=== PATIENT | female | born 1950 | race Caucasian/White ===

== ENCOUNTER 2016-08-12 13:18 | Emergency (ER) | payer MEDICARE, OTHER ==
[2016-08-12] MEDS ORDERED: LORazepam 1 MG TAB PO STA (14:55)
[2016-08-12] MEDS ORDERED: MECLIZINE 12.5 MG TAB PO STA (14:56)
--- NOTE | 2016-08-12 14:57 | ED ---
General Adult HPI - General Chief complaint: Dizziness Stated complaint: lightheaded/weakness/heart concerns Time Seen by Provider: 08/12/16 14:37 Source: patient, family, RN notes reviewed Mode of arrival: wheelchair Limitations: no limitations - History of Present Illness Initial comments: Chief complaint and history of present illness a 65-year-old female who feels dizzy with head movement. She's had congestion for long period of time. She also suffered the loss of the friend yesterday. States she has some numbness and tingling bilaterally and when she turns her head [id number] she gets dizzy. No nausea no vomiting and otherwise no other neuro deficits. - Related Data Home Medications Medication Instructions Recorded Confirmed Albuterol Inhaler [Ventolin Hfa 1 puff INHALATION RT-Q6H PRN 08/12/16 08/12/16 Inhaler] Cod Liver Oil 1 cap PO DAILY 08/12/16 08/12/16 Cyanocobalamin [Vitamin B-12] 500 mcg PO DAILY 08/12/16 08/12/16 Doxazosin [Cardura] 8 mg PO DAILY 08/12/16 08/12/16 Enalapril [Vasotec] 10 mg PO DAILY 08/12/16 08/12/16 Furosemide [Lasix] 20 mg PO DAILY PRN 08/12/16 08/12/16 Glucosamine HCl/Chondr [place] A Na 1 tab PO DAILY 08/12/16 08/12/16 [Osteo Bi-Flex Caplet] Multivitamins, Thera [Multivitamin] 1 tab PO DAILY 08/12/16 08/12/16 NIFEdipine [Procardia XL] 90 mg PO DAILY 08/12/16 08/12/16 [place]-3 Fatty Acids/Fish Oil [Fish 1 cap PO DAILY 08/12/16 08/12/16 Oil 1,000 mg Softgel] Omeprazole 20 mg PO DAILY 08/12/16 08/12/16 Potassium Chloride [Klor-Con 10] 10 meq PO DAILY PRN 08/12/16 08/12/16 Rosuvastatin [Crestor] 20 mg PO MOWEFR 08/12/16 08/12/16 traMADol HCL [Ultram] 50 mg PO W/SUPPER 08/12/16 08/12/16 traMADol HCL [Ultram] 100 mg PO HS 08/12/16 08/12/16 traMADol HCl [Ultram] 50 mg PO W/BRKFST 08/12/16 08/12/16 Previous Rx's Medication Instructions Recorded Meclizine [Antivert] 25 mg PO TID #30 tab 08/12/16 Allergies Allergy/AdvReac Type Severity Reaction Status Date / Time No Known Allergies Allergy Verified 08/12/16 15:11 Review of Systems ROS Statement: Those systems with pertinent positive or pertinent negative responses have been documented in the HPI. Review of systems. No headache or visual acuity changes of them when she moves her head quickly she feels little dizzy no nausea no vomiting no chest pain no shortness of breath. No neuro deficits that were pre-existing. 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 Patient denying nausea vomiting and diarrhea. Past medical problems significant for fibromyalgia, GERD, hyperlipidemia, hypertension and RSD. Surgeries appendectomy, back surgery, , total right knee, tonsillectomy. The patient's family history significant for one sister with lymphoma another sister with lung cancer. Father had lung cancer as wellhistory of kidney cancer. The patient mother of a stroke. Grandmother of a stroke. Patient denies ALLERGIES nonsmoker nondrinker. ROS Other: All systems not noted in ROS Statement are negative. Past Medical History Past Medical History: Fibromyalgia, GERD/Reflux, Hyperlipidemia, Hypertension Additional Past Medical History / Comment(s): RSD History of Any Multi-Drug Resistant Organisms: None Reported Past Surgical History: Appendectomy, Back Surgery, Section, Joint Replacement, Orthopedic Surgery, Tonsillectomy Additional Past Surgical History / Comment(s): right knee replacement Past Psychological History: No Psychological Hx Reported Smoking Status: Never smoker Past Alcohol Use History: None Reported Past Drug Use History: None Reported General Exam - General Exam Comments Initial Comments: General: The patient is awake and alert, complains of some dizziness with rapid head movement. No nausea no vomiting no significant visual acuity changes. Vital signs show torus 98.2 pulse 96 respiratory 20 pulse ox 97% room air blood pressure 120/64 mildly elevated systolic noted. The patient will be advised to call . family physician tomorrow because of clinical finding today of murmur and right carotid bruit. Eye: Pupils are equal, round and reactive to light, extra-ocular movements are intact ; there is normal conjunctiva bilaterally. No signs of icterus. Ears, nose, mouth and throat: There are moist mucous membranes and no oral lesions. Neck: The neck is supple, there is no tenderness , positive or carotid bruit right side. Cardiovascular: There is a regular rate and rhythm. Systolic murmur. Patient states she's never been told she has a murmur before. Respiratory: Lungs are clear to auscultation, respirations are non-labored, breath sounds are equal. No wheezes, stridor, rales, or rhonchi. Gastrointestinal: Soft, non-distended, non-tender abdomen without masses or organomegaly noted. There is no rebound or guarding present. No CVA tenderness. Bowel sounds are unremarkable. Back: Not complaining of any back pain currently. Musculoskeletal: Full range of motion upper and lower extremities. 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 Neurological: CN II-XII intact, There are no obvious motor or sensory deficits. Coordination appears grossly intact. Speech is normal. No focal or lateralizing findings. Skin: Skin is warm and dry and no rashes or lesions are noted. Psychiatric: Cooperative, appropriate mood & affect, normal judgment. Admittedly mildly anxious because the of a friend yesterday. Limitations: no limitations Course Vital Signs 08/12/16 13:27 Temperature 98.2 F Pulse Rate 96 Respiratory 20 Rate Blood Pressure 128/64 O2 Sat by Pulse 97 Oximetry Medical Decision Making - Medical Decision Making Patient's feeling significantly better after by mouth Ativan and meclizine. Patient was placed on meclizine 25 mg 3 times a day for dizziness. Advised to stay well-hydrated. And follow-up with family physician as needed. Again reminded to follow up for an echocardiogram and carotid Doppler. - Lab Data Lab Results 08/12/16 Range/Units 14:54 Urine Color Light Yellow Urine Appearance Clear (Clear) Urine pH 5.0 (5.0-8.0) Ur Specific [place] 1.005 (1.001-1.035) Urine Protein Negative (Negative) Urine Glucose (UA) Negative (Negative) Urine Ketones Negative (Negative) Urine Blood Negative (Negative) Urine Nitrate Positive H (Negative) Urine Bilirubin Negative (Negative) Urine Urobilinogen <2.0 (<2.0) mg/dL Ur Leukocyte Esterase Small H (Negative) Urine RBC 1 (0-5) /hpf Urine WBC 7 H (0-5) /hpf Ur Squamous Epith Cells 2 (0-4) /hpf Urine Bacteria Many H (None) /hpf Urine Mucus Rare H (None) /hpf Disposition Clinical Impression: Benign paroxysmal positional vertigo Disposition: HOME SELF-CARE Condition: Good Instructions: Dizziness (ED), Benign Paroxysmal Positional Vertigo (ED) Additional Instructions: Follow-up with your family physician for evaluation of the heart murmur and carotid bruit. You need echocardiogram of the heart and Doppler study of the carotids. Change positions slowly. Take meclizine as directed. Prescriptions: Meclizine [Antivert] 25 mg PO TID #30 tab Time of Disposition: 16:05
[2016-08-12] MEDS ORDERED: DAPTOMYCIN IV SCH (15:00)
[2016-08-12] MEDS ORDERED: SODIUM CHLORIDE 0.9% IV SCH (15:00)
[2016-08-12 15:12] LABS: Appearance,Urine Clear (Clear); Bacteria,Urine Many /hpf; Bilirubin,Urine Negative (Negative); Glucose,Urine (UA) Negative (Negative); Ketones,Urine Negative (Negative); Leukocyte Esterase,Urine Small (Negative); Mucus,Urine Rare /hpf; Nitrite,Urine Positive (Negative); Particle Count 19756; Protein,Urine Negative (Negative); RBC,Urine 1 /hpf (0-5); Specific Gravity,Urine 1.005 (1.001-1.035); Squamous Epithelial Cell,Urine 2 /hpf (0-4); UA Billing (MACRO vs. MICRO) MICRO; Urobilinogen,Urine <2.0 mg/dL (<2.0); WBC,Urine 7 /hpf (0-5)
[2016-08-12 16:17] VITALS: BP 152/83; PULSE 94; RESP 18; TEMP 98.5
== END 2016-08-12 16:20 | disposition home or self-care (01) ==
LOC: EC 13:18
DX: H81.10 Benign paroxysmal vertigo, unspecified ear (principal); R01.1 Cardiac murmur, unspecified; R09.89 Other specified symptoms and signs involving the circulatory and respiratory systems; M79.7 Fibromyalgia; K21.9 Gastro-esophageal reflux disease without esophagitis; E78.5 Hyperlipidemia, unspecified; I10 Essential (primary) hypertension; Z79.899 Other long term (current) drug therapy; Z79.891 Long term (current) use of opiate analgesic
CPT/HCPCS: 81001; 87077; 87086; 87186; 99283

== ENCOUNTER 2017-06-09 19:48 | Emergency (ER) | payer MEDICARE, OTHER ==
--- NOTE | 2017-06-09 20:30 | ED ---
General Adult HPI - General Chief complaint: Back Pain/Injury Stated complaint: Back Pain Time Seen by Provider: 06/09/17 20:08 Source: patient, family, RN notes reviewed Mode of arrival: wheelchair Limitations: no limitations - History of Present Illness Initial comments: Chief complaint history of present illness this is a 66-year-old female here with her . The patient reports several days ago at home she is walking down the house and she missed the last 2 steps. She fell towards her left side landing on skull fracture. Patient then rolled over to her right side on the ground. She went to an urgent care sooner thereafter. X-rays were taken but she did not get the results. The patient reports she is currently taking baclofen diclofenac and tramadol but still has discomfort. There is no loss of consciousness. No change in appetite. No dark urine or blood in the urine. - Related Data Home Medications Medication Instructions Recorded Confirmed Doxazosin [Cardura] 8 mg PO DAILY 08/12/16 06/09/17 Enalapril [Vasotec] 10 mg PO DAILY 08/12/16 06/09/17 NIFEdipine [Procardia XL] 90 mg PO DAILY 08/12/16 06/09/17 Omeprazole 20 mg PO DAILY 08/12/16 06/09/17 Rosuvastatin [Crestor] 20 mg PO MOWEFR 08/12/16 06/09/17 traMADol HCL [Ultram] 50 mg PO W/SUPPER 08/12/16 06/09/17 traMADol HCL [Ultram] 100 mg PO HS 08/12/16 06/09/17 traMADol HCl [Ultram] 50 mg PO W/BRKFST 08/12/16 06/09/17 Baclofen [Lioresal] 10 mg PO TID PRN 06/09/17 06/09/17 Diclofenac Sodium [Voltaren] 75 mg PO BID PRN 06/09/17 06/09/17 Allergies Allergy/AdvReac Type Severity Reaction Status Date / Time nitrofurantoin Allergy Verified 06/09/17 21:00 [From Macrobid] Review of Systems ROS Statement: Those systems with pertinent positive or pertinent negative responses have been documented in the HPI. review of systems. Denies headache was no loss of consciousness no visual acuity changes she reports deep breathing increases discomfort to her back or flank area. Has pain when leaning back onto that area. No nausea no vomiting no neuro deficits. All systems are reviewed. Past medical problems significant for fibromyalgia and RSD. She history of GERD, hyperlipidemia and hypertension.Surgeries include appendectomy, laminectomy lower back, , total right knee replacement, tonsillectomy. Family history includes cancers, kidney, leukemia, lung. ALLERGIES none nonsmoker nondrinker. ROS Other: All systems not noted in ROS Statement are negative. Past Medical History Past Medical History: Fibromyalgia, GERD/Reflux, Hyperlipidemia, Hypertension Additional Past Medical History / Comment(s): RSD History of Any Multi-Drug Resistant Organisms: None Reported Past Surgical History: Appendectomy, Back Surgery, Section, Joint Replacement, Orthopedic Surgery, Tonsillectomy Additional Past Surgical History / Comment(s): right knee replacement Past Psychological History: No Psychological Hx Reported Smoking Status: Never smoker Past Alcohol Use History: None Reported Past Drug Use History: None Reported General Exam - General Exam Comments Initial Comments: General: The patient is awake and alert,complains of pain to her left flank area. She fell several days ago. Has a bruise to the left midaxillary line. But the pain appears to be a possible broken rib in her left flank. Eye: Pupils are equal, round and reactive to light, extra-ocular movements are intact ; there is normal conjunctiva bilaterally. No signs of icterus. Ears, nose, mouth and throat: There are moist mucous membranes and no oral lesions. Neck: The neck is supple, there is no tenderness . Cardiovascular: no anterior chest wall pain no complaint of any palpitations. Respiratory: pain with deep breathing twisting or turning to her left flank. Cannot lean against anything and that part of her chest wall. Lungs are clear no rubs rales or wheezing. Palpation of the area increases pain as well. Gastrointestinal: Soft, non-distended, non-tender abdomen without masses or organomegaly noted. There is no rebound or guarding present. No CVA tenderness. Bowel sounds are unremarkable. Back: left flank area pain no bruises noted. Musculoskeletal: Normal ROM, no tenderness, There is no pedal edema. There is no calf tenderness or swelling. Neurological: no neuro deficits. Patient did not have any head or neck injury when she fell several days ago at home. Skin: bruise to her left axillary line. Limitations: no limitations Course Vital Signs 06/09/17 19:51 Temperature 98.3 F Pulse Rate 81 Respiratory 18 Rate Blood Pressure 138/81 O2 Sat by Pulse 95 Oximetry Medical Decision Making - Medical Decision Making Medical decision-making. The patient's here because of pain to her left flank area I suspect a fractured rib or nondisplaced rib fracture. X-rays of the chest and rib series were done and reviewed radiologist his findings are heart and mediastinum are normal. Lungs clear. There is no sign of pleural effusion or pneumothorax. The ribs appear intact. Impression normal chest normal bilateral ribs. As read by Dr. Wolf Lungs clear to auscultation. The patient has pain with even mild palpation of the area in question in her left flank area. No change in urination. Deep palpation of the abdomen was negative no masses. Spleen is not enlarged or tender by palpation. We discussed rib contusion nondisplaced rib fractures. The patient does have medications including tramadol. 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 The patient will be given a pain shot this evening and referred back to her family physician. Advised to look for any changes in stool or urine. Disposition Clinical Impression: Contusion of rib on left side Disposition: HOME SELF-CARE Condition: Stable Instructions: Rib Contusion (ED), Rib Fracture (ED) Additional Instructions: Find position of comfort. Continue with home pain medications. Follow-up with family physician. Referrals: Artie Brannon DO [Primary Care Provider] - 1-2 days Time of Disposition: 21:26
--- NOTE | 2017-06-09 21:16 | XR ---
EXAMINATION TYPE: XR ribs bilat w pa chest xray DATE OF EXAM: 06/09/2017 COMPARISON: NONE HISTORY: Rib pain TECHNIQUE: 9 views FINDINGS: Heart and mediastinum are normal. Lungs are clear. There is no sign of pleural effusion or pneumothorax. The ribs appear intact. IMPRESSION: Normal chest. Normal bilateral ribs.
[2017-06-09] MEDS ORDERED: HYDROmorphone 1 MG/ML 1 ML SYRINGE IM STA (21:25)
[2017-06-09] MEDS ORDERED: HYDROmorphone 0.5 MG/0.5 ML SYRINGE IM STA (21:36)
[2017-06-09 21:37] VITALS: BP 137/72; PULSE 78; RESP 16; TEMP 97.8
== END 2017-06-09 21:44 | disposition home or self-care (01) ==
LOC: EC 19:48
DX: S20.212A Contusion of left front wall of thorax, initial encounter (principal); M79.7 Fibromyalgia; K21.9 Gastro-esophageal reflux disease without esophagitis; E78.5 Hyperlipidemia, unspecified; I10 Essential (primary) hypertension; Z79.899 Other long term (current) drug therapy; Z88.1 Allergy status to other antibiotic agents; W10.9XXA Fall (on) (from) unspecified stairs and steps, initial encounter
CPT/HCPCS: 71111; 99283; 96372; J1170

== ENCOUNTER 2017-10-20 04:02 | Emergency (ER) | payer MEDICARE, OTHER ==
[2017-10-20 04:08] VITALS: RESP 18
[2017-10-20 04:33] LABS: Appearance,Urine Clear (Clear); Bacteria,Urine Rare /hpf; Bilirubin,Urine Negative (Negative); Blood,Urine Trace (Negative); Color,Urine Light Yellow; Glucose,Urine (UA) Negative (Negative); Ketones,Urine Negative (Negative); Leukocyte Esterase,Urine Small (Negative); Mucus,Urine Rare /hpf; Nitrite,Urine Negative (Negative); Protein,Urine Negative (Negative); RBC,Urine 2 /hpf (0-5); Squamous Epithelial Cell,Urine 1 /hpf (0-4); Urobilinogen,Urine <2.0 mg/dL (<2.0); WBC,Urine 9 /hpf (0-5)
--- NOTE | 2017-10-20 05:00 | ED ---
Back Pain HPI - General Chief Complaint: Back Pain/Injury Stated Complaint: Lower back pain Time Seen by Provider: 10/20/17 04:13 Source: patient Limitations: physical limitation - History of Present Illness Initial Comments: This patient is a 67-year-old woman who presents to be evaluated for pain across her low back, which is going on tonight and was accompanied by she states that tingling feeling to both legs. She states that it came on in the evening, and the sensation in her legs was giving her difficulty in going to sleep. Patient states that she was recently treated for urinary tract infection , taking a course of cephalexin, of which she has 1 pill left. She states that she does not feel that symptoms have completely resolved. Patient denies weakness or numbness of the legs. She is not having any saddle anesthesia. She has not had change in bowel function. No urinary retention or incontinence. No abdominal pain. MD Complaint: back pain Onset/Timin -: days(s) Place: home Severity: mild Quality: dull Consistency: constant Improves With: none Worsens With: none - Related Data Home Medications Medication Instructions Recorded Confirmed Doxazosin [Cardura] 8 mg PO DAILY 08/12/16 06/09/17 Enalapril [Vasotec] 10 mg PO DAILY 08/12/16 06/09/17 NIFEdipine [Procardia XL] 90 mg PO DAILY 08/12/16 06/09/17 Omeprazole 20 mg PO DAILY 08/12/16 06/09/17 Rosuvastatin [Crestor] 20 mg PO MOWEFR 08/12/16 06/09/17 traMADol HCL [Ultram] 50 mg PO W/SUPPER 08/12/16 06/09/17 traMADol HCL [Ultram] 100 mg PO HS 08/12/16 06/09/17 traMADol HCl [Ultram] 50 mg PO W/BRKFST 08/12/16 06/09/17 Baclofen [Lioresal] 10 mg PO TID PRN 06/09/17 06/09/17 Diclofenac Sodium [Voltaren] 75 mg PO BID PRN 06/09/17 06/09/17 Previous Rx's Medication Instructions Recorded Diazepam [Valium] 5 mg PO TID #15 tab 10/20/17 Sulfamethox-Tmp 800-160Mg [Bactrim 1 each PO Q12HR #6 tab 10/20/17 Ds] predniSONE 20 mg PO BID #8 tab 10/20/17 Allergies Allergy/AdvReac Type Severity Reaction Status Date / Time nitrofurantoin Allergy Rash/Hives Verified 10/20/17 04:08 [From Macrobid] Review of Systems ROS Statement: Those systems with pertinent positive or pertinent negative responses have been documented in the HPI. ROS Other: All systems not noted in ROS Statement are negative. Constitutional: Denies: fever, chills Respiratory: Denies: cough, dyspnea Cardiovascular: Denies: chest pain, palpitations, edema Gastrointestinal: Denies: abdominal pain, nausea, vomiting, diarrhea Genitourinary: Reports: dysuria. Denies: frequency, hematuria Musculoskeletal: Reports: as per HPI, back pain Skin: Denies: rash Neurological: Reports: paresthesias. Denies: headache, weakness, numbness, abnormal gait Past Medical History Past Medical History: Fibromyalgia, GERD/Reflux, Hyperlipidemia, Hypertension Additional Past Medical History / Comment(s): RSD, History of Any Multi-Drug Resistant Organisms: None Reported Past Surgical History: Appendectomy, Back Surgery, Section, Joint Replacement, Orthopedic Surgery, Tonsillectomy Additional Past Surgical History / Comment(s): right knee replacement, Past Psychological History: No Psychological Hx Reported Smoking Status: Never smoker Past Alcohol Use History: None Reported Past Drug Use History: None Reported General Exam Limitations: physical limitation General appearance: alert, in no apparent distress, obese Head exam: Present: atraumatic, normocephalic Respiratory exam: Present: normal lung sounds bilaterally. Absent: respiratory distress, wheezes, rales, rhonchi, stridor Cardiovascular Exam: Present: regular rate, normal rhythm, normal heart sounds. Absent: systolic murmur, diastolic murmur, rubs, gallop GI/Abdominal exam: Present: soft. Absent: distended, tenderness, guarding, rebound, rigid, mass, pulsatile mass, hernia Extremities exam: Present: normal inspection, full ROM, normal capillary refill. Absent: tenderness, pedal edema, joint swelling, calf tenderness Back exam: Absent: CVA tenderness (R), CVA tenderness (L), paraspinal tenderness , vertebral tenderness Neurological exam: Present: alert, reflexes normal. Absent: motor sensory deficit Skin exam: Present: warm, dry, intact, normal color. Absent: rash Course Vital Signs 04/08/18 04:04 Temperature 97.4 F L Pulse Rate 83 Respiratory 18 Rate Blood Pressure 148/80 O2 Sat by Pulse 97 Oximetry Medical Decision Making - Lab Data Lab Results 10/20/17 Range/Units 04:10 Urine Color Light Yellow Urine Appearance Clear (Clear) Urine pH 6.0 (5.0-8.0) Ur Specific [place] 1.010 (1.001-1.035) Urine Protein Negative (Negative) Urine Glucose (UA) Negative (Negative) Urine Ketones Negative (Negative) Urine Blood Trace H (Negative) Urine Nitrite Negative (Negative) Urine Bilirubin Negative (Negative) Urine Urobilinogen <2.0 (<2.0) mg/dL Ur Leukocyte Esterase Small H (Negative) Urine RBC 2 (0-5) /hpf Urine WBC 9 H (0-5) /hpf Urine WBC Clumps Rare H (None) /hpf Ur Squamous Epith Cells 1 (0-4) /hpf Urine Bacteria Rare H (None) /hpf Urine Mucus Rare H (None) /hpf Disposition Clinical Impression: Lumbar radiculopathy, Urinary tract infection Disposition: HOME SELF-CARE Condition: Good Instructions: Acute Low Back Pain (ED) Prescriptions: Diazepam [Valium] 5 mg PO TID #15 tab predniSONE 20 mg PO BID #8 tab Sulfamethox-Tmp 800-160Mg [Bactrim Ds] 1 each PO Q12HR #6 tab Referrals: Artie Brannon DO [Primary Care Provider] - 1-2 days Radha Maguire DO [Doctor of Osteopathic Medicine] - 1-2 days
[2017-10-20] MEDS ORDERED: predniSONE 20 MG TAB PO STA (05:38)
[2017-10-20] MEDS ORDERED: DIAZEPAM 5 MG TAB PO STA (05:43)
[2017-10-20] MEDS ORDERED: SULFAMETHOX-TMP 800-160MG 1 EACH TAB PO STA (05:43)
[2017-10-20 06:01] VITALS: BP 143/70; PULSE 80; TEMP 97.2
== END 2017-10-20 06:00 | disposition home or self-care (01) ==
LOC: EC 04:02
DX: M54.16 Radiculopathy, lumbar region (principal); N39.0 Urinary tract infection, site not specified; K21.9 Gastro-esophageal reflux disease without esophagitis; E78.5 Hyperlipidemia, unspecified; M79.7 Fibromyalgia; I10 Essential (primary) hypertension; Z88.8 Allergy status to other drugs, medicaments and biological substances; Z79.891 Long term (current) use of opiate analgesic; Z79.899 Other long term (current) drug therapy; Z98.890 Other specified postprocedural states
CPT/HCPCS: 99283; 81001; J7512

== ENCOUNTER 2018-10-03 15:50 | Emergency (ER) | payer MEDICARE, OTHER ==
[2018-10-03] MEDS ORDERED: SODIUM CHLORIDE 0.9% 1,000 ML IV STA (16:07)
[2018-10-03] MEDS ORDERED: ASPIRIN 81 MG PO STA (16:07)
[2018-10-03] MEDS ORDERED: IPRATROPIUM-ALBUTEROL 3 ML NEB INHALATION STA ×2 (16:10→17:21)
--- NOTE | 2018-10-03 16:15 | ED ---
Chest Pain HPI - General Chief Complaint: Chest Pain Stated Complaint: chest pressure Time Seen by Provider: 10/03/18 15:58 Source: patient, RN notes reviewed Mode of arrival: wheelchair Limitations: no limitations - History of Present Illness Initial Comments: This is a 68-year-old female who states she has a "touch of asthma" who states she's had intermittent episodes of anterior chest pain that sometimes radiates toward her back states is pressure-like in nature gets worse with supine positioning. She relates it to a cough that she's had with yellow phlegm she's had no fevers chills or sweats across a lot for over a week. States the pain is 4-5/10 when it occurs. No known history of heart disease. No other symptomatology or modifying factors at this time. MD Complaint: chest pain, other - Related Data Home Medications Medication Instructions Recorded Confirmed Doxazosin [Cardura] 8 mg PO DAILY 08/12/16 10/03/18 Enalapril [Vasotec] 10 mg PO DAILY 08/12/16 10/03/18 NIFEdipine [Procardia XL] 90 mg PO DAILY 08/12/16 10/03/18 RX: Omeprazole 20 mg PO DAILY 08/12/16 10/03/18 Rosuvastatin [Crestor] 20 mg PO MOWEFR 08/12/16 10/03/18 traMADol HCl [Ultram] 50 mg PO TID 08/12/16 10/03/18 Albuterol Inhaler [Ventolin Hfa 1 - 2 puff INHALATION RT-Q6H PRN 10/03/18 Inhaler] Aspirin EC [Ecotrin Low Dose] 81 mg PO DAILY 10/03/18 10/03/18 Cyanocobalamin (Vitamin B-12) 1,000 mcg PO DAILY 10/03/18 10/03/18 [Vitamin B-12] Ferrous Sulfate [Feosol] 325 mg PO BID 10/03/18 10/03/18 Fluticasone Nasal [place] [Flonase 1 spray EA NOSTRIL DAILY 10/03/18 10/03/18 Nasal [place]] Fluticasone Propionate [Flovent 2 puff INHALATION RT-DAILY 10/03/18 10/03/18 Hfa 220 mcg] Levofloxacin [Levaquin] 500 mg PO DAILY 10/03/18 10/03/18 Multivitamin,Therapeutic [Thera] 1 tab PO DAILY 10/03/18 10/03/18 [place]-3 Fatty Acids/Fish Oil [Fish 1 cap PO DAILY 10/03/18 10/03/18 Oil 1,000 mg Softgel] RX: Torsemide 10 mg PO DAILY 10/03/18 10/03/18 methylPREDNISolone [Medrol] 4 mg PO TID 10/03/18 10/03/18 Previous Rx's Medication Instructions Recorded RX: Magnesium 200 mg PO DAILY #7 tablet 10/03/18 Allergies Allergy/AdvReac Type Severity Reaction Status Date / Time nitrofurantoin Allergy Rash/Hives Verified 10/03/18 16:23 [From Macrobid] Review of Systems ROS Statement: Those systems with pertinent positive or pertinent negative responses have been documented in the HPI. ROS Other: All systems not noted in ROS Statement are negative. EKG Findings - EKG Results: EKG: interpreted by BETTIED, sinus rhythm (Normal sinus rhythm of 82. Interval 138 QRS duration 86 QT since QTC 390/455 nonspecific T-wave configuration) Past Medical History Past Medical History: Fibromyalgia, GERD/Reflux, Hyperlipidemia, Hypertension Additional Past Medical History / Comment(s): RSD, History of Any Multi-Drug Resistant Organisms: None Reported Past Surgical History: Appendectomy, Back Surgery, Section, Joint Replacement, Orthopedic Surgery, Tonsillectomy Additional Past Surgical History / Comment(s): right knee replacement, Past Psychological History: No Psychological Hx Reported Smoking Status: Never smoker Past Alcohol Use History: None Reported Past Drug Use History: None Reported General Exam - General Exam Comments Initial Comments: This is a well-developed well-nourished awake alert oriented 3 female Limitations: no limitations General appearance: alert, in no apparent distress Head exam: Present: atraumatic, normocephalic, normal inspection Eye exam: Present: normal appearance, PERRL, EOMI. Absent: scleral icterus, conjunctival injection, periorbital swelling ENT exam: Present: normal exam, mucous membranes moist Neck exam: Present: normal inspection, full ROM, other (No stridor JVD or bruits). Absent: tenderness, meningismus, lymphadenopathy Respiratory exam: Present: wheezes, rhonchi (Some scattered rhonchi), decreased breath sounds. Absent: respiratory distress, rales, stridor, chest wall tenderness Cardiovascular Exam: Present: regular rate, normal rhythm, normal heart sounds. Absent: systolic murmur, diastolic murmur, rubs, gallop, clicks GI/Abdominal exam: Present: soft, normal bowel sounds. Absent: distended, tenderness, guarding, rebound, rigid Extremities exam: Present: normal inspection, full ROM, normal capillary refill. Absent: tenderness, pedal edema, joint swelling, calf tenderness Back exam: Present: normal inspection Neurological exam: Present: alert, oriented X3, CN II-XII intact Psychiatric exam: Present: normal affect, normal mood Skin exam: Present: warm, dry, intact, normal color. Absent: rash Course Vital Signs 10/03/18 10/03/18 10/03/18 15:52 16:17 16:26 Temperature 97.8 F Pulse Rate 81 64 63 Respiratory 16 14 14 Rate Blood Pressure 129/75 O2 Sat by Pulse 93 L Oximetry 10/03/18 10/03/18 10/03/18 17:58 18:19 18:26 Temperature Pulse Rate 70 66 68 Respiratory 18 18 18 Rate Blood Pressure 116/72 O2 Sat by Pulse 98 Oximetry - Reevaluation(s) Reevaluation #1: 10/03/18 17:20 Reevaluation reveals the pressure of resolved however the patient still feeling short of breath and coughing reevaluation reveals decreased breath sounds with wheezes and rhonchi in both lung [place]. Repeat updraft will be ordered Reevaluation #2: 10/03/18 18:54 Evaluation patient reveals she is much improved markedly better aeration occasional wheezing clears with deep breathing. Chest Pain [facility] Patient's x-ray is unremarkable for acute processes. After 2 updraft treatments IV magnesium and IV steroids patient is much improved and would like to go home no further difficulty breathing or chest discomfort chest discomfort is likely secondary to musculoskeletal etiologies secondary to her persistent coughing and difficulty breathing. She will be discharged with continuation of her current medication as well as recommendations for increasing her oral fluids and oral magnesium supplementation. She is return if any problems or exacerbations of her original chief complaint otherwise she is a follow-up with her doctor. She are in agreement with this. Disposition Clinical Impression: Acute asthma exacerbation, Chest wall syndrome Disposition: HOME SELF-CARE Condition: Good Instructions (If sedation given, give patient instructions): Costochondritis (ED), Bronchospasm (ED), Asthma (ED), Reactive Airways Disease (ED) Additional Instructions: Continue with your current medications in addition to the magnesium that is being recommended Prescriptions: RX: Magnesium 200 mg PO DAILY #7 tablet Is patient prescribed a controlled substance at d/c from ED?: No Referrals: Artie Brannon DO [Primary Care Provider] - 1-2 days
[2018-10-03 16:38] LABS: Basophils % (A) 0 %; Eosinophils # (A) 0.1 k/uL (0-0.7); Eosinophils % (A) 1 %; HCT 38.5 % (34.0-46.0); Lymphocytes % (A) 23 %; MCH 26.9 pg (25.0-35.0); MCHC 31.3 g/dL (31.0-37.0); Mean Platelet Volume 6.7; Monocytes # (A) 0.6 k/uL (0-1.0); Monocytes % (A) 7 %; Neutrophils # (A) 5.7 k/uL (1.3-7.7); Neutrophils % (A) 67 %; Platelet Count 340 k/uL (150-450); RBC 4.48 m/uL (3.80-5.40); RDW 14.5 % (11.5-15.5); WBC 8.5 k/uL (3.8-10.6)
[2018-10-03 16:45] LABS: Albumin 4.2 g/dL (3.5-5.0); Calcium 10.1 mg/dL (8.4-10.2); Magnesium 1.7 mg/dL (1.6-2.3); Total Bilirubin 0.3 mg/dL (0.2-1.3); Total Protein 7.5 g/dL (6.3-8.2)
[2018-10-03 16:53] LABS: D-Dimer 0.3 mg/L FEU (<0.60); Partial Thromboplastin Time 24.1 sec (22.0-30.0); Prothrombin Time 11.1 sec (9.0-12.0)
--- NOTE | 2018-10-03 16:53 | XR ---
EXAMINATION: XR chest 2V DATE AND TIME: 10/03/2018 4:40 PM CLINICAL INDICATION: PHH; Chest Pain TECHNIQUE: Departmental protocol COMPARISON: 06/09/2017 FINDINGS: The lungs are clear. The pleural spaces are negative. The cardiac silhouette is not enlarged. The prominent middle mediastinal mass with gas-fluid level is similar in appearance, consistent with large hiatal hernia. The skeletal structures and extrathoracic soft tissues are negative for acute findings. IMPRESSION: NO ACUTE PROCESS.
[2018-10-03] MEDS ORDERED: methylPREDNISolone SOD SUCCI 125 MG/2 ML VIAL IV STA (17:21)
[2018-10-03] MEDS ORDERED: MAGNESIUM SULFATE-D5W PMX 1 GM in DEXTROSE/WATER 1 100ML.BAG IVPB ONE (17:21)
[2018-10-03 17:59] VITALS: RESP 18
[2018-10-03 19:09] VITALS: BP 123/67; PULSE 96; TEMP 98.6
== END 2018-10-03 19:18 | disposition home or self-care (01) ==
LOC: EC 15:50
DX: J45.901 Unspecified asthma with (acute) exacerbation (principal); E78.5 Hyperlipidemia, unspecified; I10 Essential (primary) hypertension; K21.9 Gastro-esophageal reflux disease without esophagitis; G90.50 Complex regional pain syndrome I, unspecified; Z88.1 Allergy status to other antibiotic agents; Z79.51 Long term (current) use of inhaled steroids; Z79.52 Long term (current) use of systemic steroids; Z79.82 Long term (current) use of aspirin; Z79.891 Long term (current) use of opiate analgesic; Z79.899 Other long term (current) drug therapy; Z96.651 Presence of right artificial knee joint
CPT/HCPCS: 36415; 94640 ×2; 93005; 85379; 83880; 80053; 82150; 83690; 83735; 84484; 85025; 85610; 85730; 87040; 71046; 99285; 96365; 96375; 96361; J2930; J3475

== ENCOUNTER 2020-09-18 21:00 | Emergency (ER) | payer MEDICARE, OTHER ==
[2020-09-18 21:05] VITALS: TEMP 98.1
--- NOTE | 2020-09-18 21:33 | ED ---
General Adult HPI - General Chief complaint: Chest Pain Stated complaint: Chest Pain Time Seen by Provider: 09/18/20 21:19 Source: patient Mode of arrival: wheelchair Limitations: no limitations - History of Present Illness Initial comments: Patient presents the ED with her for evaluation. Patient states that she was at rest about 1.5 hours ago when she developed rapid heart palpitations. Patient states that she got her Covid vaccine 2 days ago, and she states that she has felt "tired" since then. Patient states that her palpitations have now resolved. Patient denies having any other symptoms or complaints. Patient denies having any chest pain to me. Patient denies having any pain at all. Patient denies fever or chills, headache, focal numbness/weakness/neuro deficit, chest pain or pressure, neck/arm/jaw pain, dyspnea, cough or cold symptoms, dizziness, syncopal, abdominal pain, nausea/vomiting/diarrhea, dysuria or urinary symptoms, leg or calf swelling or pain, or any other symptoms or complaints. - Related Data Home Medications Medication Instructions Recorded Confirmed Doxazosin [Cardura] 8 mg PO DAILY 08/12/16 10/03/18 Enalapril [Vasotec] 10 mg PO DAILY 08/12/16 10/03/18 NIFEdipine [Procardia XL] 90 mg PO DAILY 08/12/16 10/03/18 Omeprazole 20 mg PO DAILY 08/12/16 10/03/18 Rosuvastatin [Crestor] 20 mg PO MOWEFR 08/12/16 10/03/18 traMADol HCl [Ultram] 50 mg PO TID 08/12/16 10/03/18 Albuterol Inhaler (Mhu) [Ventolin 1 - 2 puff INHALATION RT-Q6H PRN 10/03/18 10/03/18 Hfa Inhaler] Aspirin EC [Ecotrin Low Dose] 81 mg PO DAILY 10/03/18 10/03/18 Cyanocobalamin (Vitamin B-12) 1,000 mcg PO DAILY 10/03/18 10/03/18 [Vitamin B-12] Ferrous Sulfate [Feosol] 325 mg PO BID 10/03/18 10/03/18 Fluticasone Nasal [place] [Flonase 1 spray EA NOSTRIL DAILY 10/03/18 10/03/18 Nasal [place]] Fluticasone Propionate [Flovent 2 puff INHALATION RT-DAILY 10/03/18 10/03/18 Hfa 220 mcg] Levofloxacin [Levaquin] 500 mg PO DAILY 10/03/18 10/03/18 Multivitamin,Therapeutic [Thera] 1 tab PO DAILY 10/03/18 10/03/18 [place]-3 Fatty Acids/Fish Oil [Fish 1 cap PO DAILY 10/03/18 10/03/18 Oil 1,000 mg Softgel] Torsemide [Demadex] 10 mg PO DAILY 10/03/18 10/03/18 methylPREDNISolone [Medrol] 4 mg PO TID 10/03/18 10/03/18 Previous Rx's Medication Instructions Recorded Magnesium 200 mg PO DAILY #7 tablet 10/03/18 Allergies Allergy/AdvReac Type Severity Reaction Status Date / Time nitrofurantoin Allergy Rash/Hives Verified 10/03/18 16:23 [From XVionicsbid] Review of Systems ROS Statement: Those systems with pertinent positive or pertinent negative responses have been documented in the HPI. ROS Other: All systems not noted in ROS Statement are negative. Past Medical History Past Medical History: Fibromyalgia, GERD/Reflux, Hyperlipidemia, Hypertension Additional Past Medical History / Comment(s): RSD, History of Any Multi-Drug Resistant Organisms: None Reported Past Surgical History: Appendectomy, Back Surgery, Section, Joint Replacement, Orthopedic Surgery, Tonsillectomy Additional Past Surgical History / Comment(s): right knee replacement, Past Psychological History: No Psychological Hx Reported Past Alcohol Use History: None Reported Past Drug Use History: None Reported General Exam Limitations: no limitations General appearance: alert, in no apparent distress Head exam: Present: atraumatic, normocephalic Eye exam: Present: normal appearance, EOMI ENT exam: Present: mucous membranes moist Neck exam: Present: other (Trachea is in midline) Respiratory exam: Present: normal lung sounds bilaterally. Absent: respiratory distress, wheezes, rales, rhonchi, stridor Cardiovascular Exam: Present: regular rate, normal rhythm, normal heart sounds, other (Normal radial pulses bilaterally) GI/Abdominal exam: Present: soft. Absent: distended, tenderness, guarding Extremities exam: Present: other (Negative Homans sign bilaterally). Absent: tenderness, pedal edema, calf tenderness Neurological exam: Present: alert, oriented X3. Absent: motor sensory deficit Psychiatric exam: Present: normal affect, normal mood Skin exam: Present: warm, dry, intact, normal color Course Vital Signs 09/18/20 21:01 Temperature 98.1 F Pulse Rate 102 H Respiratory 18 Rate Blood Pressure 139/71 - Reevaluation(s) Reevaluation #1: 09/18/20 23:06 Patient continues to deny having any palpitations or symptoms while in the ED. Patient remains in normal sinus rhythm on the alarm security or surveillance monitor. Patient remains alert and breathing comfortably. Patient and are aware the patient's test results, and patient feels comfortable going home with her at this time. Patient was counseled about palpitations, and she was clearly explained return and follow-up instructions. Patient was instructed to follow up closely with her primary care provider. Patient was instructed to have a low threshold for return to the ED should her symptoms worsen. Patient feels comfortable with this plan. 09/18/20 23:08 EKG Findings - EKG Comments: EKG Findings:: Normal sinus rhythm, ventricular rate of 100 bpm, no ectopy, normal ID and QRS intervals, normal QT interval, normal axis, nonspecific ST abnormality Medical Decision Making - Medical Decision Making Patient denies having any chest pain. Patient's troponin is negative. Mukesh nt's creatinine is minimally elevated, and she was hydrated with a liter of IV normal saline in the ED. Patient has not had any palpitations while in the ED, and she has remained in normal sinus rhythm on the alarm security or surveillance monitor. I do not suspect an emergent medical condition at this time. Will discharge patient home at this time with her . Patient was instructed to follow up closely with her primary care provider. - Lab Data Result diagrams: 09/18/20 21:25 09/18/20 21:25 Lab Results 09/18/20 09/18/20 09/18/20 Range/Units 21:25 21:25 21:25 WBC 6.6 (3.8-10.6) k/uL RBC 3.89 (3.80-5.40) m/uL Hgb 10.6 L (11.4-16.0) gm/dL Hct 31.7 L (34.0-46.0) % MCV 81.5 (80.0-100.0) fL MCH 27.2 (25.0-35.0) pg MCHC 33.3 (31.0-37.0) g/dL RDW 14.1 (11.5-15.5) % Plt Count 269 (150-450) k/uL MPV 7.2 Neutrophils % 57 % Lymphocytes % 30 % Monocytes % 8 % Eosinophils % 2 % Basophils % 1 % Neutrophils # 3.8 (1.3-7.7) k/uL Lymphocytes # 2.0 (1.0-4.8) k/uL Monocytes # 0.6 (0-1.0) k/uL Eosinophils # 0.1 (0-0.7) k/uL Basophils # 0.0 (0-0.2) k/uL PT 10.6 (9.0-12.0) sec INR 1.0 (<1.2) APTT 23.9 (22.0-30.0) sec Sodium 137 (137-145) mmol/L Potassium 4.1 (3.5-5.1) mmol/L Chloride 100 (98-107) mmol/L Carbon Dioxide 27 (22-30) mmol/L Anion Gap 10 mmol/L BUN 27 H (7-17) mg/dL Creatinine 1.56 H (0.52-1.04) mg/dL Est GFR (CKD-EPI)AfAm 39 (>60 ml/min/1.73 sqM) Est GFR (CKD-EPI)NonAf 34 (>60 ml/min/1.73 sqM) Glucose 108 H (74-99) mg/dL Calcium 10.0 (8.4-10.2) mg/dL Magnesium 2.0 (1.6-2.3) mg/dL Total Bilirubin 0.2 (0.2-1.3) mg/dL AST 25 (14-36) U/L ALT 17 (4-34) U/L Alkaline Phosphatase 83 (38-126) U/L Troponin I (0.000-0.034) ng/mL NT-Pro-B Natriuret Pep pg/mL Total Protein 7.3 (6.3-8.2) g/dL Albumin 4.5 (3.5-5.0) g/dL 09/18/20 09/18/20 Range/Units 21:25 21:25 WBC (3.8-10.6) k/uL RBC (3.80-5.40) m/uL Hgb (11.4-16.0) gm/dL Hct (34.0-46.0) % MCV (80.0-100.0) fL MCH (25.0-35.0) pg MCHC (31.0-37.0) g/dL RDW (11.5-15.5) % Plt Count (150-450) k/uL MPV Neutrophils % % Lymphocytes % % Monocytes % % Eosinophils % % Basophils % % Neutrophils # (1.3-7.7) k/uL Lymphocytes # (1.0-4.8) k/uL Monocytes # (0-1.0) k/uL Eosinophils # (0-0.7) k/uL Basophils # (0-0.2) k/uL PT (9.0-12.0) sec INR (<1.2) APTT (22.0-30.0) sec Sodium (137-145) mmol/L Potassium (3.5-5.1) mmol/L Chloride (98-107) mmol/L Carbon Dioxide (22-30) mmol/L Anion Gap mmol/L BUN (7-17) mg/dL Creatinine (0.52-1.04) mg/dL Est GFR (CKD-EPI)AfAm (>60 ml/min/1.73 sqM) Est GFR (CKD-EPI)NonAf (>60 ml/min/1.73 sqM) Glucose (74-99) mg/dL Calcium (8.4-10.2) mg/dL Magnesium (1.6-2.3) mg/dL Total Bilirubin (0.2-1.3) mg/dL AST (14-36) U/L ALT (4-34) U/L Alkaline Phosphatase (38-126) U/L Troponin I <0.012 (0.000-0.034) ng/mL NT-Pro-B Natriuret Pep 201 pg/mL Total Protein (6.3-8.2) g/dL Albumin (3.5-5.0) g/dL - Radiology Data Radiology results: report reviewed (Chest x-ray shows no acute cardiopulmonary process) Disposition Clinical Impression: Palpitations Disposition: HOME SELF-CARE Condition: Stable Instructions (If sedation given, give patient instructions): Heart Palpitations (ED) Additional Instructions: Return to the ER immediately should you develop any significant pain, a fever, chest pain, shortness of breath, feeling dizzy or faint, or new or worsening symptoms. Follow up closely with your primary care provider. Is patient prescribed a controlled substance at d/c from ED?: No Referrals: Troy Rouse DO [Primary Care Provider] - 1-2 days Time of Disposition: 23:10
[2020-09-18 21:40] LABS: Basophils % (A) 1 %; Eosinophils # (A) 0.1 k/uL (0-0.7); Eosinophils % (A) 2 %; HCT 31.7 % (34.0-46.0); HGB 10.6 gm/dL (11.4-16.0); Lymphocytes % (A) 30 %; MCH 27.2 pg (25.0-35.0); MCHC 33.3 g/dL (31.0-37.0); MCV 81.5 fL (80.0-100.0); Mean Platelet Volume 7.2; Monocytes # (A) 0.6 k/uL (0-1.0); Monocytes % (A) 8 %; Neutrophils # (A) 3.8 k/uL (1.3-7.7); Neutrophils % (A) 57 %; Platelet Count 269 k/uL (150-450); RBC 3.89 m/uL (3.80-5.40); RDW 14.1 % (11.5-15.5); WBC 6.6 k/uL (3.8-10.6)
[2020-09-18 22:00] LABS: Partial Thromboplastin Time 23.9 sec (22.0-30.0); Prothrombin Time 10.6 sec (9.0-12.0)
--- NOTE | 2020-09-18 22:04 | XR ---
EXAMINATION TYPE: XR chest 2V DATE OF EXAM: 09/18/2020 COMPARISON: 10/03/2018 HISTORY: Chest pain TECHNIQUE: Frontal and lateral views of the chest are obtained. FINDINGS: There is no focal air space opacity, pleural effusion, or pneumothorax seen. The cardiac silhouette size is within normal limits. There is a large hiatal hernia. The osseous structures are intact. IMPRESSION: No acute cardiopulmonary process. No change in the large hiatal hernia.
[2020-09-18 22:06] LABS: Albumin 4.5 g/dL (3.5-5.0); Potassium 4.1 mmol/L (3.5-5.1); Total Bilirubin 0.2 mg/dL (0.2-1.3); Total Protein 7.3 g/dL (6.3-8.2)
[2020-09-18] MEDS ORDERED: SODIUM CHLORIDE 0.9% 1,000 ML IV ONE (22:51)
[2020-09-18 23:24] VITALS: BP 124/70; PULSE 76; RESP 16
== END 2020-09-18 23:24 | disposition home or self-care (01) ==
LOC: EC 21:00
DX: R00.2 Palpitations (principal); E78.5 Hyperlipidemia, unspecified; I10 Essential (primary) hypertension; K21.9 Gastro-esophageal reflux disease without esophagitis; Z79.51 Long term (current) use of inhaled steroids; Z79.52 Long term (current) use of systemic steroids; Z79.82 Long term (current) use of aspirin
CPT/HCPCS: 36415; 71046; 80053; 83735; 83880; 84484; 85025; 85610; 85730; 93005; 96360; 99285

== ENCOUNTER 2020-10-29 18:39 | Emergency (ER) | payer MEDICARE, OTHER ==
--- NOTE | 2020-10-29 20:20 | ED ---
Arrhythmia/Palpitations HPI - General Source: patient Mode of arrival: ambulatory Limitations: no limitations <J Carlos Vera - Last Filed: 10/29/20 22:00> <Ara Bo - Last Filed: 11/01/20 02:21> - General Chief Complaint: Arrhythmia/Palpitations Stated Complaint: High HR/Weak Time Seen by Provider: 10/29/20 20:01 - History of Present Illness Initial Comments: 70-year-old female with history of hypertension and dyslipidemia presents emergency Department with a chief complaint of chest palpitations. Patient reports this occurred around 1600 today while she was watching TV. Patient states she checked her watch and her heart rate was approximately 120 bpm and then it dropped down to the 80s and back up again. Patient reports these heart rate fluctuations were ongoing for approximately 45 minutes before it gradually resolved. States on the way to the emergency department, it occurred again she is asymptomatic at this time. She did report feeling slightly short of breath when the initial episode occurred not since then. She denies any associated lightheadedness, dizziness, diaphoretic episodes, nausea, vomiting, gait instability, one-sided weakness or paresthesias. She never had any chest pain. (J Carlso Vera) - Related Data Home Medications Medication Instructions Recorded Confirmed Enalapril [Vasotec] 10 mg PO DAILY 08/12/16 10/29/20 NIFEdipine [Procardia XL] 90 mg PO DAILY 08/12/16 10/29/20 Rosuvastatin [Crestor] 20 mg PO MOWEFR 08/12/16 10/29/20 Aspirin EC [Ecotrin Low Dose] 81 mg PO DAILY 10/03/18 10/29/20 Cyanocobalamin (Vitamin B-12) 1,000 mcg PO DAILY 10/03/18 10/29/20 [Vitamin B-12] Fluticasone Nasal [place] [Flonase 2 spray EA NOSTRIL DAILY PRN 10/03/18 10/29/20 Nasal [place]] Fluticasone Propionate [Flovent 1 puff INHALATION RT-BID 10/03/18 10/29/20 Hfa 220 mcg] Multivitamin,Therapeutic [Thera] 1 tab PO DAILY 10/03/18 10/29/20 Wynne-3 Fatty Acids/Fish Oil [Fish 1 cap PO DAILY 10/03/18 10/29/20 Oil 1,000 mg Softgel] Torsemide [Demadex] 10 mg PO DAILY 10/03/18 10/29/20 Albuterol Sulfate [Ventolin HFA] 2 puff INHALATION RT-QID PRN 10/29/20 10/29/20 Calcium Citrate/Vitamin D3 1 tab PO DAILY 10/29/20 10/29/20 [Citracal + D Maximum Caplet] Doxazosin Mesylate [Cardura] 8 mg PO DAILY 10/29/20 10/29/20 Fexofenadine HCl [Luz Marina Allergy] 180 mg PO DAILY 10/29/20 10/29/20 Methenamine Hippurate 1 gm PO BID 10/29/20 10/29/20 Pramipexole [Mirapex] 0.25 mg PO HS 10/29/20 10/29/20 Turmeric/Rachel 1 tab PO DAILY 10/29/20 10/29/20 Vit C/E/Zn/Coppr/Lutein/Zeaxan 1 cap PO BID 10/29/20 10/29/20 [Preservision Areds 2 Softgel] Allergies Allergy/AdvReac Type Severity Reaction Status Date / Time nitrofurantoin Allergy Rash/Hives Verified 10/29/20 21:26 [From Macrobid] Review of Systems ROS Other: All systems not noted in ROS Statement are negative. <J Carlos Vera - Last Filed: 10/29/20 22:00> ROS Other: All systems not noted in ROS Statement are negative. <Ara Bo - Last Filed: 11/01/20 02:21> ROS Statement: Those systems with pertinent positive or pertinent negative responses have been documented in the HPI. Past Medical History Past Medical History: Fibromyalgia, GERD/Reflux, Hyperlipidemia, Hypertension Additional Past Medical History / Comment(s): RSD, History of Any Multi-Drug Resistant Organisms: None Reported Past Surgical History: Appendectomy, Back Surgery, Section, Joint Replacement, Orthopedic Surgery, Tonsillectomy Additional Past Surgical History / Comment(s): right knee replacement, Past Psychological History: No Psychological Hx Reported Smoking Status: Never smoker Past Alcohol Use History: None Reported Past Drug Use History: None Reported <J Carlos Vera - Last Filed: 10/29/20 22:00> General Exam Limitations: no limitations General appearance: alert, in no apparent distress Head exam: Present: atraumatic, normocephalic, normal inspection Eye exam: Present: normal appearance, PERRL, EOMI Pupils: Present: normal accommodation ENT exam: Present: normal exam, normal oropharynx, mucous membranes moist, TM's normal bilaterally, normal external ear exam Neck exam: Present: normal inspection, full ROM. Absent: tenderness Respiratory exam: Present: normal lung sounds bilaterally. Absent: respiratory distress, wheezes, rales, rhonchi, stridor, chest wall tenderness Cardiovascular Exam: Present: regular rate, normal rhythm, normal heart sounds GI/Abdominal exam: Present: soft. Absent: distended, tenderness, guarding, rebound Extremities exam: Present: normal inspection, full ROM, normal capillary refill. Absent: tenderness Back exam: Present: normal inspection, full ROM. Absent: tenderness, CVA tenderness (R), CVA tenderness (L) Neurological exam: Present: alert, oriented X3, normal gait Psychiatric exam: Present: normal affect, normal mood Skin exam: Present: warm, dry, intact, normal color <J Carlos Vera - Last Filed: 10/29/20 22:00> Course Vital Signs 10/29/20 10/29/20 18:43 20:07 Temperature 97.9 F 98.6 F Pulse Rate 98 93 Respiratory 19 17 Rate Blood Pressure 149/89 158/82 O2 Sat by Pulse 100 99 Oximetry EKG Findings - EKG Comments: EKG Findings:: Sinus rhythm with no acute ischemic changes. Ventricular rate 86, PA 160, QRS 84, QTc 466. Similar EKG to 09/18/20. <J Carlos Vera - Last Filed: 10/29/20 22:00> Medical Decision Making - Lab Data Result diagrams: 10/29/20 20:37 10/29/20 20:37 <J Carlos Vera - Last Filed: 10/29/20 22:00> - Lab Data Result diagrams: 10/29/20 20:37 10/29/20 20:37 <Ara Bo - Last Filed: 11/01/20 02:21> - Medical Decision Making 70-year-old female presents to emergency Department with a chief complaint of heart palpitations. On physical examination, patient does not appear to be in any respiratory distress. Vital signs are within normal limits. EKG showing no acute ischemic changes which appear to be similar to her most recent EKG on 09/18/20. CBC is unremarkable. CMP reveals elevated BUN of 32 and an improved creatinine 1.03. Chest x-ray is unremarkable. Troponin is within normal limits. BNP is 220. Considering this is a repeat visit for the same chief complaint and 1 month, I offered a patient cardiac observation with a cardiology consult. Patient states she would rather go home and follow up with her primary care in the morning. Return parameters were discussed with patient was understanding and agreeable. Case discussed with (J Carlos Vear) I was available for consultation in the emergency department. The history and physical exam were done by the midlevel provider. I was consulted for this patients care. I reviewed the case with the midlevel provider and based on their presentation of the patient, I agree with the assessment, medical decision making and plan of care as documented. Chart was dictated using Scrip-[employer] dictation software. Attempts were made to correct any dictation errors however some typographical errors may persist. Patient was seen during a national state of emergency due to the Covid-19 pandemic. (Ara Bo) - Lab Data Lab Results 10/29/20 10/29/20 10/29/20 Range/Units 20:37 20:37 20:37 WBC 7.2 (3.8-10.6) k/uL RBC 4.05 (3.80-5.40) m/uL Hgb 10.6 L (11.4-16.0) gm/dL Hct 32.2 L (34.0-46.0) % MCV 79.5 L (80.0-100.0) fL MCH 26.0 (25.0-35.0) pg MCHC 32.7 (31.0-37.0) g/dL RDW 14.3 (11.5-15.5) % Plt Count 296 (150-450) k/uL MPV 7.3 Neutrophils % 65 % Lymphocytes % 25 % Monocytes % 6 % Eosinophils % 1 % Basophils % 1 % Neutrophils # 4.7 (1.3-7.7) k/uL Lymphocytes # 1.8 (1.0-4.8) k/uL Monocytes # 0.4 (0-1.0) k/uL Eosinophils # 0.1 (0-0.7) k/uL Basophils # 0.1 (0-0.2) k/uL Hypochromasia Slight PT 10.6 (9.0-12.0) sec INR 1.0 (<1.2) APTT 24.2 (22.0-30.0) sec Sodium 139 (137-145) mmol/L Potassium 4.3 (3.5-5.1) mmol/L Chloride 104 (98-107) mmol/L Carbon Dioxide 26 (22-30) mmol/L Anion Gap 9 mmol/L BUN 32 H (7-17) mg/dL Creatinine 1.09 H (0.52-1.04) mg/dL Est GFR (CKD-EPI)AfAm 60 (>60 ml/min/1.73 sqM) Est GFR (CKD-EPI)NonAf 52 (>60 ml/min/1.73 sqM) Glucose 104 H (74-99) mg/dL Calcium 10.3 H (8.4-10.2) mg/dL Magnesium 2.0 (1.6-2.3) mg/dL Total Bilirubin 0.2 (0.2-1.3) mg/dL AST 25 (14-36) U/L ALT 15 (4-34) U/L Alkaline Phosphatase 88 (38-126) U/L Troponin I (0.000-0.034) ng/mL NT-Pro-B Natriuret Pep pg/mL Total Protein 7.6 (6.3-8.2) g/dL Albumin 4.6 (3.5-5.0) g/dL 10/29/20 10/29/20 Range/Units 20:37 20:37 WBC (3.8-10.6) k/uL RBC (3.80-5.40) m/uL Hgb (11.4-16.0) gm/dL Hct (34.0-46.0) % MCV (80.0-100.0) fL MCH (25.0-35.0) pg MCHC (31.0-37.0) g/dL RDW (11.5-15.5) % Plt Count (150-450) k/uL MPV Neutrophils % % Lymphocytes % % Monocytes % % Eosinophils % % Basophils % % Neutrophils # (1.3-7.7) k/uL Lymphocytes # (1.0-4.8) k/uL Monocytes # (0-1.0) k/uL Eosinophils # (0-0.7) k/uL Basophils # (0-0.2) k/uL Hypochromasia PT (9.0-12.0) sec INR (<1.2) APTT (22.0-30.0) sec Sodium (137-145) mmol/L Potassium (3.5-5.1) mmol/L Chloride (98-107) mmol/L Carbon Dioxide (22-30) mmol/L Anion Gap mmol/L BUN (7-17) mg/dL Creatinine (0.52-1.04) mg/dL Est GFR (CKD-EPI)AfAm (>60 ml/min/1.73 sqM) Est GFR (CKD-EPI)NonAf (>60 ml/min/1.73 sqM) Glucose (74-99) mg/dL Calcium (8.4-10.2) mg/dL Magnesium (1.6-2.3) mg/dL Total Bilirubin (0.2-1.3) mg/dL AST (14-36) U/L ALT (4-34) U/L Alkaline Phosphatase (38-126) U/L Troponin I <0.012 (0.000-0.034) ng/mL NT-Pro-B Natriuret Pep 226 pg/mL Total Protein (6.3-8.2) g/dL Albumin (3.5-5.0) g/dL Disposition Is patient prescribed a controlled substance at d/c from ED?: No Time of Disposition: 22:00 <J Carlos Vera - Last Filed: 10/29/20 22:00> <Ara Bo - Last Filed: 11/01/20 02:21> Clinical Impression: Heart palpitations Disposition: HOME SELF-CARE Condition: Stable Instructions (If sedation given, give patient instructions): Heart Palpitations (ED) Additional Instructions: Follow with the clinical data programmer. Return to emergency department if symptoms worsen. Referrals: Troy Rouse DO [Primary Care Provider] - 1-2 days
[2020-10-29 20:24] VITALS: BP 158/82; PULSE 93; RESP 17; TEMP 98.6
[2020-10-29 20:44] LABS: Basophils # (A) 0.1 k/uL (0-0.2); Basophils % (A) 1 %; Eosinophils # (A) 0.1 k/uL (0-0.7); Eosinophils % (A) 1 %; HCT 32.2 % (34.0-46.0); HGB 10.6 gm/dL (11.4-16.0); Hypochromasia Slight; Lymphocytes # (A) 1.8 k/uL (1.0-4.8); Lymphocytes % (A) 25 %; MCHC 32.7 g/dL (31.0-37.0); MCV 79.5 fL (80.0-100.0); Mean Platelet Volume 7.3; Monocytes # (A) 0.4 k/uL (0-1.0); Monocytes % (A) 6 %; Neutrophils # (A) 4.7 k/uL (1.3-7.7); Neutrophils % (A) 65 %; Platelet Count 296 k/uL (150-450); RBC 4.05 m/uL (3.80-5.40); RDW 14.3 % (11.5-15.5); WBC 7.2 k/uL (3.8-10.6)
[2020-10-29 20:55] LABS: Albumin 4.6 g/dL (3.5-5.0); Calcium 10.3 mg/dL (8.4-10.2); Potassium 4.3 mmol/L (3.5-5.1); Total Bilirubin 0.2 mg/dL (0.2-1.3); Total Protein 7.6 g/dL (6.3-8.2)
--- NOTE | 2020-10-29 20:55 | XR ---
EXAMINATION TYPE: XR chest 2V DATE OF EXAM: 10/29/2020 COMPARISON: 09/28/2020 HISTORY: Chest pain TECHNIQUE: FINDINGS: There is no heart failure nor confluent pneumonic infiltrate. There is hiatal hernia. There are chest leads. Bony thorax is intact. IMPRESSION: No active cardiopulmonary disease. Hiatal hernia. No change.
[2020-10-29 20:59] LABS: Partial Thromboplastin Time 24.2 sec (22.0-30.0); Prothrombin Time 10.6 sec (9.0-12.0)
== END 2020-10-29 22:10 | disposition home or self-care (01) ==
LOC: EC 18:39
DX: R00.2 Palpitations (principal); E78.5 Hyperlipidemia, unspecified; I10 Essential (primary) hypertension; K21.9 Gastro-esophageal reflux disease without esophagitis; Z79.82 Long term (current) use of aspirin; Z79.899 Other long term (current) drug therapy
CPT/HCPCS: 36415; 71046; 80053; 83735; 83880; 84484; 85025; 85610; 85730; 99285